=== PATIENT | male | born 2000 | race African-American/Black ===

== ENCOUNTER 2018-09-28 11:39 | Emergency (ER) | payer OTHER ==
[~2018-09-28] VITALS: Ht 190.5 cm; Wt 68.0 kg
[2018-09-28] MEDS ORDERED: NAPROSYN500 MG PO (12:25)
[2018-09-28] MEDS ORDERED: ZYRTEC10 MG PO (12:25)
[2018-09-28] MEDS ORDERED: FLONASE 0.05%50 MCG NASAL (12:25)
[2018-09-28 12:51] VITALS: BP 132/75
--- NOTE | 2018-09-29 13:31 | EKG ---
[address] [place] [address] ELECTROCARDIOGRAM REPORT Name: ALESSIA RAMIREZ [facility] [id number] ������������������ Admission: 09/28/18 ������������������ Attend Phys: Discharge: 09/28/18 ������������������ Date of : [birth year] Report #: [id number] ����������������������������������������������������������������� [id number] THIS REPORT FOR: //name// [facility] ED Test Date: 2018-09-28 Test Time: 11:42:31 Pat Name: ALESSIA RAMIREZ Department: Room: Gender: M [employer]: KKODJOVI : 2000 Requested By: Mine [place] Order Number: [id number] MD: Nick Gonzales Measurements Intervals [place] Rate: 68 P: 57 AK: 166 QRS: 57 QRSD: 83 T: 52 QT: 359 QTc: 382 Interpretive Statements Sinus rhythm No significant abnormality No previous ECG available for comparison Electronically Signed On 09-29-2018 13:31:39 CDT by Nick Gonzales [email or web address] ��������������������������������������������� <ELECTRONICALLY SIGNED> ���������������������������������������� By: Nick Gonzales MD, [facility] ��������������������������������������������� 09/29/18 1331 1142 1142 Nick Gonzales MD, FACC /EPI
== END 2018-09-28 12:52 | disposition home or self-care (01) ==
LOC: ER 11:39
DX: R09.1 Pleurisy (principal); J30.9 Allergic rhinitis, unspecified; Z87.891 Personal history of nicotine dependence; Z88.1 Allergy status to other antibiotic agents; Z88.8 Allergy status to other drugs, medicaments and biological substances